=== PATIENT | female | born 1975 | race Caucasian/White ===

== ENCOUNTER 2021-01-30 10:26 | Outpatient (CLI) | payer BC | END 2021-01-30 10:27 | disposition home or self-care (01) | LOC: CSHMAMMO 10:26 | PROVIDERS: ATTEND Obstetrics & Gynecology | DX: Z12.31 Encounter for screening mammogram for malignant neoplasm of breast (principal) | CPT/HCPCS: 77063; 77067 ==

== ENCOUNTER 2022-04-04 08:25 | Outpatient (CLI) | payer BC ==
[2022-04-04 09:14] LABS: Bilirubin Neg (Negative); Blood, Urine 250 (Negative); Clarity Clear (Clear); Glucose, Urine (Dipstick) Normal (Negative); Ketone, Urine Negative (Negative); Leukocyte Negative (Negative); Nitrite Negative (Negative); Protein, Urine (Dipstick) Negative (Neg-Trace); Urobilinogen Normal mg/dL (Less than 2)
[2022-04-04 09:15] LABS: Hemoglobin 12.8 g/dL (12.0-15.5); Mean Corpuscular HGB CONC 33.3 g/dL (32.0-36.0); Mean Corpuscular Hemoglobin 31.1 pg (27.0-33.0); Mean Corpuscular Volume 93.2 fl (81.6-98.3); Mean Platelet Volume 10.9 fl (7.4-10.4); Platelet Count 306 10x3/uL (150-450); RBC Distribution Width 12.6 % (11.5-14.5); Red Blood Cell (RBC) Count 4.12 10x6/uL (3.90-5.03); White Blood Cell (WBC) Count 8.5 10x3/uL (3.5-10.5)
[2022-04-04 09:21] LABS: Bacteria/HPF Rare-Few HPF (None Seen); RBC/HPF 21-50 HPF (0-3); Squamous Epithelial 0-3 HPF (0-3); WBC/HPF 0-3 HPF (0-3)
[2022-04-04 09:49] LABS: BHCG - Serum Negative (NEGATIVE); Pregs Control Background? CLEAR/WHITE (CLR/WHITE); Pregs Control Bar Appear? YES (CONTROL BAR)
== END 2022-04-04 08:26 | disposition home or self-care (01) ==
LOC: CSHLAB 08:25
PROVIDERS: ATTEND Obstetrics & Gynecology
DX: Z01.812 Encounter for preprocedural laboratory examination (principal); Z20.822 Contact with and (suspected) exposure to COVID-19; N92.0 Excessive and frequent menstruation with regular cycle
CPT/HCPCS: 81001; 84703; 85027; 87811

== ENCOUNTER 2022-04-08 05:35 | Day surgery (SDC) | payer BC ==
[2022-04-02 14:02] VITALS: BMI 29.7
[2022-04-08] MEDS ORDERED: PROPOFOL 20 ML ONE ×2 (06:46→09:43)
[2022-04-08] MEDS ORDERED: Dexamethasone 4 mg/ml Vial ONE (06:47)
[2022-04-08] MEDS ORDERED: Fentanyl 100 MCG/2 ML VIAL ONE (06:47)
[2022-04-08] MEDS ORDERED: Lidocaine 1% PF 5 ML VIAL ONE (06:47)
[2022-04-08] MEDS ORDERED: Ketorolac Tromethamine 30 MG/ML VIAL ONE ×2 (06:47→08:04)
[2022-04-08] MEDS ORDERED: Ondansetron PF 4 MG/2 ML Vial ONE (06:47)
[2022-04-08] MEDS ORDERED: Promethazine HCl 25 MG/ML VIAL ONE (06:51)
[2022-04-08] MEDS ORDERED: Lidocaine 2% Jelly 5 ML TUBE ONE (06:52)
[2022-04-08] MEDS ORDERED: CEFAZOLIN 2 GM VIAL ONE (06:56)
[2022-04-08] MEDS ORDERED: Midazolam HCl 2 mg/2 ml Vial ONE (06:57)
[2022-04-08] MEDS ORDERED: PHENYLEPHRINE-NS 100 MCG/ML 10 ML SYRINGE ONE (07:19)
[2022-04-08] MEDS ORDERED: ePHEDrine Sulfate 50 MG/10 ML VIAL ONE (07:37)
== END 2022-04-08 09:10 | disposition home or self-care (01) ==
LOC: CSHSDC 05:35
PROVIDERS: ATTEND Obstetrics & Gynecology
PROC: 0UB98ZX Excision of Uterus, Via Natural or Artificial Opening Endoscopic, Diagnostic (ICD-10-PCS; principal; 2022-04-08)
PROC: 0U5B8ZZ Destruction of Endometrium, Via Natural or Artificial Opening Endoscopic (ICD-10-PCS; principal; 2022-04-08)
DX: N84.0 Polyp of corpus uteri (principal); N92.0 Excessive and frequent menstruation with regular cycle
CPT/HCPCS: 88305; J0690; J1100; J1885; J2250; J2405; J2550; J2704; J3010